=== PATIENT | female | born 1990 | race Asian ===

== ENCOUNTER 2021-11-06 11:43 | Emergency (ER) | payer MEDICAID ==
[~2021-11-06] VITALS: Ht 158.8 cm; Wt 66.5 kg
[~2021-11-06 11:43] MED LIST: EPIN0.3A3 IM; FAMO-1 PO; IBUP-1984 PO; PRED20TA PO
[2021-11-06 11:51] VITALS: BP 141/90
[2021-11-06] MEDS ORDERED: CefTRIAXone 1000mg IM Kit (w/lidocaine diluent) IM STA (14:34)
[2021-11-06] MEDS ORDERED: azithromycin 250mg tablet PO ONE (14:35)
== END 2021-11-06 15:35 | disposition home or self-care (01) ==
LOC: ER 11:43
DX: Z20.2 Contact with and (suspected) exposure to infections with a predominantly sexual mode of transmission (principal); Z88.6 Allergy status to analgesic agent; Z88.8 Allergy status to other drugs, medicaments and biological substances
CPT/HCPCS: 36415; 87491; 87591; 96372; 99283; J0696